=== PATIENT | female | born 1955 | race Two or more races ===

== ENCOUNTER → 2019-01-22 | Outpatient (CLI) | payer OTHER ==
[~2019-01-22] MED LIST: COZAAR100 MG; INDERAL LA120 MG; LASIX20 MG; PROTONIX40 MG
== END | disposition home or self-care (01) ==
LOC: RAD 12:28
DX: M54.5 Low back pain (principal)

== ENCOUNTER 2020-11-01 08:18 | Outpatient (CLI) | payer OTHER | END 2020-11-01 08:22 | disposition home or self-care (01) | LOC: RAD 08:18 | PROVIDERS: ATTEND General Practice | DX: J35.8 Other chronic diseases of tonsils and adenoids (principal) ==

== ENCOUNTER → 2021-03-06 | Outpatient (CLI) | payer OTHER | END | disposition home or self-care (01) | LOC: MRI 11:08 | PROVIDERS: ATTEND Physical Medicine & Rehabilitation | DX: M25.552 Pain in left hip (principal); M25.551 Pain in right hip | CPT/HCPCS: 73721 ==

== ENCOUNTER 2021-10-06 09:52 | Outpatient (CLI) | payer OTHER | END 2021-10-06 10:04 | disposition home or self-care (01) | LOC: SONOGRAMA 09:52 | PROVIDERS: ATTEND Obstetrics & Gynecology | DX: R10.2 Pelvic and perineal pain (principal) ==

== ENCOUNTER 2021-11-30 13:36 | Outpatient (CLI) | payer OTHER | END 2021-11-30 13:39 | disposition home or self-care (01) | LOC: NUCLEAR 13:36 | DX: M81.0 Age-related osteoporosis without current pathological fracture (principal); Z88.2 Allergy status to sulfonamides ==

== ENCOUNTER 2021-12-04 08:02 | Outpatient (CLI) | payer OTHER | END 2021-12-04 08:09 | disposition home or self-care (01) | LOC: RAD 08:02 | DX: M17.0 Bilateral primary osteoarthritis of knee (principal); M94.0 Chondrocostal junction syndrome [Tietze]; M81.6 Localized osteoporosis [Lequesne]; M19.90 Unspecified osteoarthritis, unspecified site ==

== ENCOUNTER 2022-09-23 08:51 | Outpatient (CLI) | payer OTHER | END 2022-09-23 08:55 | disposition home or self-care (01) | LOC: SONOGRAMA 08:51 | PROVIDERS: ATTEND Otolaryngology | DX: E04.1 Nontoxic single thyroid nodule (principal); J31.2 Chronic pharyngitis ==

== ENCOUNTER → 2022-10-07 | Outpatient (CLI) | payer OTHER ==
[~2022-10-07] MED LIST changes: +COZAAR100 MG PO; +COZAAR25 MG PO; +INDERAL LA120 MG PO; +LASIX20 MG PO; +PEPCID AC20 MG PO; +PROTONIX20 MG PO; +PROTONIX40 MG PO
== END | disposition home or self-care (01) ==
LOC: SONOGRAMA 10:20
PROVIDERS: ATTEND Pathology Anatomic Pathology & Clinical Pathology
DX: D34 Benign neoplasm of thyroid gland (principal); E04.9 Nontoxic goiter, unspecified; E04.1 Nontoxic single thyroid nodule

== ENCOUNTER 2022-10-15 13:51 | Outpatient (CLI) | payer OTHER ==
[~2022-10-15 13:51] MED LIST changes: -COZAAR100 MG PO; -COZAAR25 MG PO; -INDERAL LA120 MG PO; -LASIX20 MG PO; -PEPCID AC20 MG PO; -PROTONIX20 MG PO; -PROTONIX40 MG PO
== END 2022-10-15 14:01 | disposition home or self-care (01) ==
LOC: MRI 13:51
PROVIDERS: ATTEND Psychiatry & Neurology Neurology
DX: G30.1 Alzheimer's disease with late onset (principal)
CPT/HCPCS: 70551

== ENCOUNTER → 2023-01-20 | Outpatient (CLI) | payer OTHER ==
[~2023-01-20] MED LIST changes: +COZAAR100 MG PO; +COZAAR25 MG PO; +INDERAL LA120 MG PO; +LASIX20 MG PO; +PEPCID AC20 MG PO; +PROTONIX20 MG PO; +PROTONIX40 MG PO
== END | disposition home or self-care (01) ==
LOC: SONOGRAMA 14:24
DX: R10.2 Pelvic and perineal pain (principal)

== ENCOUNTER 2023-04-22 10:19 | Outpatient (CLI) | payer OTHER | END 2023-04-22 10:30 | disposition home or self-care (01) | LOC: MRI 10:19 | PROVIDERS: ATTEND Physical Medicine & Rehabilitation Pain Medicine | DX: M25.551 Pain in right hip (principal) | CPT/HCPCS: 73721 ==

== ENCOUNTER 2023-09-29 16:11 | Outpatient (CLI) | payer OTHER | END 2023-09-29 16:14 | disposition home or self-care (01) | LOC: RAD 16:11 | PROVIDERS: ATTEND Orthopaedic Surgery | DX: M25.551 Pain in right hip (principal); M25.552 Pain in left hip; Z88.2 Allergy status to sulfonamides ==

== ENCOUNTER 2024-05-29 16:12 | Outpatient (CLI) | payer OTHER | END 2024-05-29 16:21 | disposition home or self-care (01) | LOC: RAD 16:12 | PROVIDERS: ATTEND Orthopaedic Surgery | DX: M16.11 Unilateral primary osteoarthritis, right hip (principal); Z96.649 Presence of unspecified artificial hip joint; M54.31 Sciatica, right side; M16.0 Bilateral primary osteoarthritis of hip; Z96.641 Presence of right artificial hip joint ==

== ENCOUNTER 2024-09-17 16:12 | Outpatient (CLI) | payer OTHER | END 2024-09-17 16:16 | disposition home or self-care (01) | LOC: RAD 16:12 | PROVIDERS: ATTEND Internal Medicine | DX: M25.561 Pain in right knee (principal); M16.0 Bilateral primary osteoarthritis of hip ==

== ENCOUNTER → 2025-03-29 | Outpatient (CLI) | payer OTHER | END | disposition home or self-care (01) | LOC: SONOGRAMA 07:43 | PROVIDERS: ATTEND Obstetrics & Gynecology | DX: N83.01 Follicular cyst of right ovary (principal); N83.02 Follicular cyst of left ovary ==